=== PATIENT | male | born 1960 | race Caucasian/White ===

== ENCOUNTER 2016-11-13 00:11 | Emergency (ER) | payer OTHER ==
--- NOTE | ~2016-11-13 | CR78 ---
[facility]. [facility] A Service of [facility] & [facility] RADIOLOGY TEXT RESULTS PATIENT: MALINI BONNER LOCATION: SED : 58 UNIT #: [id number] AGE: [address]: Meng Arvizu MD SEX: M ORDER DR: [id number] [place] [id number] E MR#: [id number] Acc #: [id number] NAME: MALINI BONNER : 1960 SEX: M STUDY DATE/TIME: 11/13/2016 00:40 UNIT: SED ROOM: STUDY DESCRIPTION: CR Clavicle Comp Rt Attending Physician: Meng Arvizu M.D. Ordering Physician: Meng Arvizu M.D. Primary Care Physician: No Primary Care Physician MEDICAL IMAGING REPORT This report is preliminary unless electronic signature is present. EXAM Right clavicle 11/13 00:40 INDICATIONS Severe clavicle pain after being hit in the shoulder by a machine at work tonight. FINDINGS 2 views of the right clavicle were obtained. There is a fracture of the medial clavicle with elevation of the proximal fragment by 1/2 to 1 shaft width. 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 IMPRESSION Medial clavicle fracture with elevation of the proximal fragment by 1/2 to 1 shaft width. No AC joint separation. Dictated by... Callum Pitt Jr., M.D. THIS IS AN ELECTRONICALLY VERIFIED REPORT Callum Pitt Jr., M.D. at 11/13/2016 5:24 AM JOSS/yonatan TD: 11/13/2016 05:03 JOB #: [id number] MEDICAL IMAGING REPORT Page 1 of 1
--- NOTE | ~2016-11-13 | CR230 ---
[facility]. [facility] A Service of [facility] & [facility] RADIOLOGY TEXT RESULTS PATIENT: MALINI BONNER LOCATION: SED : 58 UNIT #: [id number] AGE: [address]: Meng Arvizu MD SEX: M ORDER DR: [id number] [place] [id number] E MR#: [id number] Acc #: [id number] NAME: MALINI BONNER : 1960 SEX: M STUDY DATE/TIME: UNIT: SED ROOM: STUDY DESCRIPTION: CR Shoulder Min 2 View Rt Attending Physician: Meng Arvizu M.D. Ordering Physician: Meng Arvizu M.D. Primary Care Physician: No Primary Care Physician MEDICAL IMAGING REPORT This report is preliminary unless electronic signature is present. EXAM Right shoulder 11/13 at 0040 hours INDICATIONS Severe shoulder and clavicle pain after machine broke and hit patient in the shoulder today. FINDINGS 3 views of the right shoulder were obtained. There is no AC joint separation. There is no glenohumeral dislocation. 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 There is a fracture of the medial clavicle with elevation of the proximal fragment by about 1 shaft width. IMPRESSION Medial clavicle fracture with elevation of the proximal fragment by 1 shaft width. Also noted is AC joint arthropathy. No shoulder dislocation. Dictated by... Callum Pitt Jr., M.D. THIS IS AN ELECTRONICALLY VERIFIED REPORT Callum Pitt Jr., M.D. at 11/13/2016 5:24 AM JOSS/yonatan TD: 11/13/2016 05:00 JOB #: [id number] MEDICAL IMAGING REPORT Page 1 of 1
[~2016-11-13 00:11] MED LIST: ZOLOFT PO
== END 2016-11-13 01:49 | disposition home or self-care (01) ==
LOC: SED 00:11
DX: S42.011A Anterior displaced fracture of sternal end of right clavicle, initial encounter for closed fracture (principal); F41.9 Anxiety disorder, unspecified; W31.9XXA Contact with unspecified machinery, initial encounter; Y92.69 Other specified industrial and construction area as the place of occurrence of the external cause; Y99.0 Civilian activity done for income or pay
CPT/HCPCS: 73000; 73030; 99283